=== PATIENT | female | born 1950 | race American Indian/Alaskan Native ===

== ENCOUNTER 2019-06-17 17:26 | Emergency (ER) | payer OTHER, MEDICARE ==
--- NOTE | 2019-06-17 17:35 | Emergency Department Report ---
Blank Doc - Documentation Documentation: This is a 68-year-old female that presents with generalized body aches. Patient is in pain clinic. Stated has some dizziness as well. This initial assessment/diagnostic orders/clinical plan/treatment(s) is/are subject to change based on patient's health status, clinical progression and re- assessment by fellow clinical providers in the ED. Further treatment and workup at subsequent clinical providers discretion. Patient/guardians urged not to elope from the ED as their condition may be serious if not clinically assessed and managed. Initial orders include: 1- Patient sent to [facility] for further evaluation and treatment 2- labs
[2019-06-17 17:39] VITALS: BP 160/77
[2019-06-17 18:28] LABS: Basophils # (Auto) 0.1 K/mm3 (0.0-0.1); Basophils % (Auto) 1.1 % (0.0-1.8); Eosinophils # (Auto) 0.3 K/mm3 (0.0-0.4); Eosinophils % (Auto) 4.9 % (0.0-4.3); Hematocrit 40.1 % (30.3-42.9); Hemoglobin 13.4 gm/dl (10.1-14.3); Lymphocytes # (Auto) 2.2 K/mm3 (1.2-5.4); Lymphocytes % (Auto) 31.7 % (13.4-35.0); Mean Corpuscular HGB Conc 33 % (30-34); Mean Corpuscular Volume 88 fl (79-97); Monocytes # (Auto) 0.5 K/mm3 (0.0-0.8); Monocytes % (Auto) 6.6 % (0.0-7.3); Platelet Count 233 K/mm3 (140-440); Red Blood Count 4.54 M/mm3 (3.65-5.03); Red Cell Distribution Width 13.9 % (13.2-15.2)
[2019-06-17 18:55] LABS: Alanine Aminotransferase 16 units/L (7-56); Albumin 3.9 g/dL (3.9-5); BUN/Creatinine Ratio 17; Blood Urea Nitrogen 10 mg/dL (7-17); Calcium 9.3 mg/dL (8.4-10.2); Hemolysis Index 8
[2019-06-17 20:19] LABS: Bacteria,Urine 1+ /HPF (Negative); Bilirubin,Urine NEG (Negative); Blood,Urine NEG (Negative); Color,Urine Yellow (Yellow); Mucus,Urine 1+ /HPF; Protein,Urine <15 mg/dL mg/dL (Negative)
[2019-06-17] MEDS ORDERED: DECADRON IM ONE (20:26)
[2019-06-17] MEDS ORDERED: DILAUDID IM ONE (20:26)
[2019-06-17] MEDS ORDERED: ZOFRAN ODT PO ONE (20:26)
--- NOTE | 2019-06-17 21:04 | Emergency Department Report ---
ED General Adult HPI - General Chief complaint: Pain General Stated complaint: BODY/LEG PAIN/LIGHTHEADED Time Seen by Provider: 06/17/19 17:29 Source: patient Mode of arrival: Ambulatory Limitations: No Limitations - History of Present Illness Initial comments: Patient is a 68-year-old -[place] female with a history of chronic pain due to chronic osteoarthritis, hypertension who presents with a ED with complaint of acute exacerbation of low back pain, bilateral hip pains, bilateral knee pains, bilateral ankle and foot pains for the last 2 weeks. Patient stated that she has been taking high pain medications at home which comprised of Mobic, hydrocodone 10 mg-325 mg, cyclobenzaprine 10 mg and gabapentin with no relief. Patient denies fall, traumatic injury, heavy lifting, nausea, vomiting, chest pain, shortness of breath, fever, chills, dysuria, urinary frequency and urgency, numbness and tingling or weakness of the lower extremities bilaterally or saddle paresthesia. MD Complaint: chronic pain; chronic low back pain; chronic osteoarthritis -: Gradual, year(s) (many years) Location: back, lower extremity (Bilateral knees, ankles and feet) Radiation: non-radiation Severity scale (0 -10): 8 Quality: aching, sharp Improves with: none Worsens with: none Associated Symptoms: denies other symptoms. denies: confusion, chest pain, cough, diaphoresis, fever/chills, headaches, loss of appetite, malaise, naus ea/vomiting, seizure, shortness of breath, syncope, weakness Treatments Prior to Arrival: NSAID - Related Data Home Medications Medication Instructions Recorded Confirmed Last Taken ALBUTEROL Inhaler (OR & NICU) 2 puff IH QID PRN 02/22/15 02/22/15 Unknown [Proair] Benzonatate [Tessalon Perles] 100 mg PO Q8HR 02/22/15 02/22/15 Unknown Desloratadine 5 mg PO 02/22/15 02/22/15 Unknown Previous Rx's Medication Instructions Recorded Last Taken Type Fluticasone Propionate [Flonase] 100 mcg NS QDAY #1 spray.susp 02/22/15 Unknown Rx Furosemide [Lasix] 40 mg PO DAILY #90 tablet 02/22/15 Unknown Rx Hydrocortisone 1% [Hydrocortisone 1 applicatio TP TID #1 tube 02/22/15 Unknown Rx 1% CREAM] Ibuprofen [Motrin] 800 mg PO Q8H PRN #60 tablet 02/22/15 Unknown Rx Olmesartan/Hydrochlorothiazide 1 tab PO DAILY #90 tablet 02/22/15 Unknown Rx [Benicar HCT 20-12.5 mg] traMADol [Ultram] 50 mg PO Q6HR PRN #14 tablet 02/22/15 Unknown Rx Meloxicam [Mobic] 15 mg PO DAILY #30 tablet 06/17/19 Unknown Rx predniSONE [Deltasone] 60 mg PO QDAY #15 tab 06/17/19 Unknown Rx Allergies Allergy/AdvReac Type Severity Reaction Status Date / Time No Known Allergies Allergy Verified 06/17/19 17:27 ED Review of Systems ROS: Stated complaint: BODY/LEG PAIN/LIGHTHEADED Other details as noted in HPI Constitutional: denies: chills, fever Eyes: denies: eye pain, eye discharge, vision change ENT: denies: ear pain, throat pain Respiratory: denies: cough, shortness of breath, wheezing Cardiovascular: denies: chest pain, palpitations Endocrine: no symptoms reported Gastrointestinal: denies: abdominal pain, nausea, diarrhea Genitourinary: denies: urgency, dysuria, discharge Musculoskeletal: back pain, arthralgia (polyarticular joint pain), myalgia. denies: joint swelling Skin: denies: rash, lesions Neurological: denies: headache, weakness, paresthesias Psychiatric: denies: anxiety, depression Hematological/Lymphatic: denies: easy bleeding, easy bruising ED Past Medical Hx - Past Medical History Hx Hypertension: Yes Additional medical history: Bronchitis, Spondylosis - Social History Smoking Status: Never Smoker Substance Use Type: None - Medications Home Medications: Home Medications Medication Instructions Recorded Confirmed Last Taken Type ALBUTEROL Inhaler (OR & NICU) 2 puff IH QID PRN 02/22/15 02/22/15 Unknown History [Proair] Benzonatate [Tessalon Perles] 100 mg PO Q8HR 02/22/15 02/22/15 Unknown History Desloratadine 5 mg PO 02/22/15 02/22/15 Unknown History Fluticasone Propionate [Flonase] 100 mcg NS QDAY #1 spray.susp 02/22/15 Unknown Rx Furosemide [Lasix] 40 mg PO DAILY #90 tablet 02/22/15 Unknown Rx Hydrocortisone 1% [Hydrocortisone 1 applicatio TP TID #1 tube 02/22/15 Unknown Rx 1% CREAM] Ibuprofen [Motrin] 800 mg PO Q8H PRN #60 tablet 02/22/15 Unknown Rx Olmesartan/Hydrochlorothiazide 1 tab PO DAILY #90 tablet 02/22/15 Unknown Rx [Benicar HCT 20-12.5 mg] traMADol [Ultram] 50 mg PO Q6HR PRN #14 tablet 02/22/15 Unknown Rx Meloxicam [Mobic] 15 mg PO DAILY #30 tablet 06/17/19 Unknown Rx predniSONE [Deltasone] 60 mg PO QDAY #15 tab 06/17/19 Unknown Rx ED Physical Exam - General Limitations: No Limitations General appearance: alert, in no apparent distress - Head Head exam: Present: atraumatic, normocephalic, normal inspection - Eye Eye exam: Present: normal appearance, PERRL, EOMI. Absent: conjunctival injection, nystagmus Pupils: Present: normal accommodation. Absent: unequal - ENT ENT exam: Present: normal exam, normal orophraynx, mucous membranes moist, TM's normal bilaterally, normal external ear exam - Neck Neck exam: Present: normal inspection, full ROM. Absent: tenderness, meningismus, lymphadenopathy, thyromegaly - Respiratory Respiratory exam: Present: normal lung sounds bilaterally. Absent: respiratory distress, wheezes, rhonchi, chest wall tenderness, accessory muscle use, prolonged expiratory - Cardiovascular Cardiovascular Exam: Present: regular rate, normal rhythm, normal heart sounds. Absent: systolic murmur, diastolic murmur, rubs, gallop - GI/Abdominal GI/Abdominal exam: Present: soft, normal bowel sounds. Absent: tenderness, guarding, rebound, hyperactive bowel sounds, hypoactive bowel sounds, mass, bruit, hernia - Rectal Rectal exam: Present: deferred - Extremities Exam Extremities exam: Present: normal inspection, full ROM, tenderness (probable polyarticular joint tenderness including the lateral hip, bilateral knees, bilateral ankles and feet), normal capillary refill. Absent: pedal edema, joint swelling, calf tenderness - Back Exam Back exam: Present: normal inspection, full ROM, tenderness (Palpable lumbosacral paraspinal and musculoskeletal tenderness), muscle spasm, paraspinal tenderness. Absent: CVA tenderness (R), CVA tenderness (L) - Neurological Exam Neurological exam: Present: alert, oriented X3, CN II-XII intact, normal gait, reflexes normal - Psychiatric Psychiatric exam: Present: normal affect, normal mood - Skin Skin exam: Present: warm, dry, intact, normal color. Absent: rash ED Course Vital Signs 06/17/19 17:34 Temperature 98.4 F Pulse Rate 94 H Respiratory 16 Rate Blood Pressure 160/77 O2 Sat by Pulse 97 Oximetry - Reevaluation(s) Reevaluation #1: 06/17/19 21:11 This is a 68-year-old female who presented to the ED with worsening low back and diffuse lower extremity pains. Patient is alert and oriented 3 and is not in distress. Lab test results are reviewed and are all unremarkable including urinalysis. Patient was treated for pain in the ED and on reevaluation, patient's pain is well-controlled with medications. Patient's symptoms are related to her chronic pain syndrome characterized by chronic osteoarthritis. Patient was discharged home on advised to continue taking her chronic pain medications and to follow-up with her primary care physician in 5-7 days for reevaluation or return to the ED immediately if symptoms get worse. ED Medical Decision Making - Lab Data Result diagrams: 06/17/19 17:59 06/17/19 17:59 - Medical Decision Making This is a 68-year-old female who presented to the ED with worsening low back and diffuse lower extremity pains. Patient is alert and oriented 3 and is not in distress. Lab test results are reviewed and are all unremarkable including urinalysis. Patient was treated for pain in the ED and on reevaluation, patient 's pain is well-controlled with medications. Patient's symptoms are related to her chronic pain syndrome characterized by chronic osteoarthritis. Patient was discharged home on advised to continue taking her chronic pain medications and to follow-up with her primary care physician in 5-7 days for reevaluation or return to the ED immediately if symptoms get worse. - Differential Diagnosis chrojnic pain syndrome; Chronic osteoathritis; muscle strain Critical care attestation.: If time is entered above; I have spent that time in minutes in the direct care of this critically ill patient, excluding procedure time. ED Disposition Clinical Impression: Chronic pain syndrome, Chronic osteoarthritis Disposition: DC-01 TO HOME OR SELFCARE Is pt being admited?: No Does the pt Need Aspirin: No Condition: Stable Instructions: Osteoarthritis (ED), Chronic Pain (ED), Chronic Back Pain (ED) Additional Instructions: Take medications with food, drink plenty of fluids and follow-up with your primary care physician in 7-10 days for reevaluation. Return to the ED immediately if symptoms get worse. Prescriptions: predniSONE [Deltasone] 60 mg PO QDAY #15 tab Meloxicam [Mobic] 15 mg PO DAILY #30 tablet Referrals: DELFINO ESCALONA MD [Primary Care Provider] - 3-5 Days Time of Disposition: 21:00 Print Language: DJIBOUTIAN
== END 2019-06-17 21:09 | disposition home or self-care (01) ==
LOC: ED 17:26
DX: M16.0 Bilateral primary osteoarthritis of hip (principal); M19.072 Primary osteoarthritis, left ankle and foot; M19.071 Primary osteoarthritis, right ankle and foot; M17.0 Bilateral primary osteoarthritis of knee; I10 Essential (primary) hypertension; Z79.899 Other long term (current) drug therapy
CPT/HCPCS: 36415; 80053; 81001; 85025; 96372; 99283; J1100; J1170; Q0162